=== PATIENT | female | born 1995 | race Native Hawaiian/Other Pacific Islander ===

== ENCOUNTER 2017-07-09 20:18 | Emergency (ER) | payer BC, MEDICAID ==
[2017-07-09 20:19] VITALS: BMI 37.1
[2017-07-09 20:56] VITALS: BP 129/64; PULSE 66; RESP 16; TEMP 98.4; O2SAT 100
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
--- NOTE | 2017-07-09 22:11 | CT ---
EXAM: CT Maxillofacial Without Intravenous Contrast CLINICAL HISTORY: 22 years old, female; Pain; Jaw pain; Additional info: Injury, left-sided mandible pain TECHNIQUE: Axial computed tomography images of the face without intravenous contrast. All CT scans at this facility use one or more dose reduction techniques, viz.: automated exposure control; ma/kV adjustment per patient size (including targeted exams where dose is matched to indication; i.e. head); or iterative reconstruction technique. Coronal and sagittal reformatted images were created and reviewed. COMPARISON: No relevant prior studies available. FINDINGS: Bones/joints: No acute fracture. Soft tissues: Soft tissue swelling/stranding along right anterior mandible. Orbits: Unremarkable as visualized. Sinuses: Scattered mild mucosal thickening of LEFT ethmoid sinus. Mild mucosal thickening of LEFT maxillary sinus. Scattered minimal mucosal thickening of remaining sinuses. Small air-fluid level within LEFT maxillary sinus. Mastoid air cells: No mastoid effusion. IMPRESSION: 1. No fracture. 2. Sinus disease.
== END 2017-07-09 22:58 | disposition home or self-care (01) ==
LOC: H.ER 20:18
DX: S09.93XA Unspecified injury of face, initial encounter (principal); Y04.0XXA Assault by unarmed brawl or fight, initial encounter

== ENCOUNTER 2017-09-24 12:38 | Emergency (ER) | payer MEDICAID ==
[2017-09-24 12:38] VITALS: BMI 37.1
[2017-09-24] MEDS ORDERED: Sodium Chloride 0.9% 1,000 ML IV STA (13:23)
--- NOTE | 2017-09-24 13:34 | ED PDOC ---
HPI: Abdomen Time Seen by Provider: 09/24/17 12:49 Chief Complaint (Nursing): Abdominal Pain Chief Complaint (Provider): Abdominal Pain History Per: Patient History/Exam Limitations: no limitations Onset/Duration Of Symptoms: Days (x 1), Intermittent Episodes Location Of Pain/Discomfort: Epigastric, Periumbilical Associated Symptoms: Vomiting, Diarrhea. denies: Fever Additional Complaint(s): 22 years old female presents to the ED with complaints of intermittent episodes of periumbilical epigastric pain associated with non-bloody/bilious vomiting and watery, non-bloody diarrhea onset yesterday evening. Patient reports experiencing multiple episodes of vomiting since yesterday until this morning. She denies any fever, recent travel, taking antibiotics or sick contact. Past Medical History Reviewed: Historical Data, Nursing Documentation, Vital Signs Vital Signs: Last Vital Signs Temp 98.0 F 09/24/17 12:41 Pulse 72 09/24/17 14:35 Resp 18 09/24/17 14:35 BP 120/76 09/24/17 14:35 Pulse Ox 98 09/24/17 14:35 - Medical History PMH: Migraine - Surgical History Surgical History: No Surg Hx - Family History Family History: States: Unknown Family Hx - Social History Current smoker - smoking cessation education provided: No Alcohol: None Drugs: Denies - Home Medications Home Medications: Ambulatory Orders Medication Instructions Recorded Multivit/Folic Acid/I 1 tab PO DAILY 04/22/16 [] Ibuprofen [Motrin Tab] 600 mg PO Q6 PRN #40 tab 04/24/16 Ibuprofen [Motrin Tab] 1 tab PO Q6 PRN #20 tab 07/09/17 Ondansetron ODT [Zofran ODT] 4 mg PO Q8 PRN #12 odt 09/24/17 - Allergies Allergies/Adverse Reactions: Allergies Allergy/AdvReac Type Severity Reaction Status Date / Time No Known Allergies Allergy Verified 07/09/17 20:52 Review of Systems ROS Statement: Except As Marked, All Systems Reviewed And Found Negative Constitutional: Negative for: Fever Gastrointestinal: Positive for: Vomiting (non bloody, non bilious), Abdominal Pain (preiumbilical epigastric), Diarrhea (watery, non bloody) Physical Exam - Reviewed Nursing Documentation Reviewed: Yes Vital Signs Reviewed: Yes - Physical Exam Appears: Positive for: Non-toxic, No Acute Distress Head Exam: Positive for: ATRAUMATIC, NORMOCEPHALIC Skin: Positive for: Normal Color, Warm, Dry Eye Exam: Positive for: Normal appearance, EOMI, PERRL ENT: Positive for: Normal ENT Inspection Neck: Positive for: Normal, Supple Cardiovascular/Chest: Positive for: Regular Rate, Rhythm. Negative for: Murmur Respiratory: Positive for: Normal Breath Sounds. Negative for: Respiratory Distress Gastrointestinal/Abdominal: Positive for: Soft, Tenderness (epigastric). Negative for: Distended Back: Positive for: Normal Inspection Extremity: Positive for: Normal ROM. Negative for: Tenderness, Swelling Neurologic/Psych: Positive for: Alert, Oriented - Laboratory Results Result Diagrams: 09/24/17 13:49 09/24/17 13:49 - ECG O2 Sat by Pulse Oximetry: 99 (RA) Pulse Ox Interpretation: Normal - Progress Re-evaluation Time: 16:02 Condition: Re-examined, Improved Medical Decision Making Medical Decision Making: Time: 1322 Initial Impression: Abdominal pain with vomiting and diarrhea. Differential includes but not limited to acute gastroenteritis, pancreatitis and viral vs bacterial diarrhea. Initial Plan: --CMP --Lipase --Urine --Urine Dipstick --CBC --Bentyl 10 mg PO --NaCl 1,000 ml IV --Toradol 15 mg IVP --Pepcid 20 mg IVP --Zofran 4 mg IVP Scribe Attestation: Documented by Geno Chacon, acting as a scribe for Buffy Casillas MD. Provider Scribe Attestation: All medical record entries made by the Scribe were at my direction and personally dictated by me. I have reviewed the chart and agree that the record accurately reflects my personal performance of the history, physical exam, medical decision making, and the department course for this patient. I have also personally directed, reviewed, and agree with the discharge instructions and disposition. Disposition - Clinical Impression Clinical Impression: Vomiting and diarrhea - Patient ED Disposition Is Patient to be Admitted: No Doctor Will See Patient In The: Office Counseled Patient/Family Regarding: Studies Performed, Diagnosis, Need For Followup - Disposition Referrals: [facility] [Outside] Disposition: Routine/Home Disposition Time: 16:03 Condition: IMPROVED Additional Instructions: Drink plenty of fluids at home. Follow up with your PCP in 2-3 days. Return for worsening. Prescriptions: Ondansetron ODT [Zofran ODT] 4 mg PO Q8 PRN #12 odt PRN Reason: Nausea/Vomiting Instructions: Viral Gastroenteritis, Adult (DC)
[2017-09-24 13:54] LABS: BASO % 0.2 % (0.0-2.0); EOS % 0.2 % (0.0-4.0); HEMOGLOBIN 13.3 g/dL (12.0-16.0); LYMPH # 0.5 K/uL (1.0-4.3); LYMPH % 6.6 % (20.0-40.0); MEAN CELL VOLUME 83.8 fl (81.0-99.0); MEAN CORPUSCULAR HEMOGLOBIN 28.4 pg (27.0-31.0); MEAN CORPUSCULAR HGB CONC 33.9 g/dL (33.0-37.0); MEAN PLATELET VOLUME 8.8 fl (7.2-11.7); MONO # 0.4 K/uL (0.0-0.8); MONO % 4.7 % (0.0-10.0); NEUT # 6.8 K/uL (1.8-7.0); NEUT % 88.3 % (50.0-75.0); NRBC % 0.1 % (0.0-0.0); PLATELET COUNT 247 K/uL (130-400); RBC 4.68 Mil/uL (3.80-5.20); RED CELL DISTRIBUTION WIDTH 14.6 % (11.5-14.5); WHITE BLOOD COUNT 7.7 K/uL (4.8-10.8)
[2017-09-24 14:21] LABS: ALB/GLOB RATIO 1.1 (1.0-2.1); ALBUMIN 4.5 g/dL (3.5-5.0); ALT/SGPT 28 U/L (9-52); AST/SGOT 22 U/L (14-36); BLOOD UREA NITROGEN 16 mg/dl (7-17); CALCIUM 9.1 mg/dL (8.4-10.2); GFR AFRICAN-AMERICAN > 60; GFR NON-AFRICAN AMERICAN > 60; LIPASE 16 U/L (23-300)
[2017-09-24 14:43] LABS: LYMPHOCYTE 11 % (20-50); MONOCYTE 5 % (0-10); NEUTROPHIL 82 % (42-75); REACTIVE LYMPHOCYTES 2 % (0-0); TOTAL CELLS COUNTED 100
[2017-09-24 14:44] LABS: PLATELET ESTIMATE NORMAL (NORMAL)
[2017-09-24] MEDS ORDERED: Potassium Chloride 20 mEq ER Tab PO ONE ×2 (16:03→16:12)
[2017-09-24 16:19] VITALS: BP 118/76; PULSE 70; RESP 19; TEMP 97; O2SAT 98
== END 2017-09-24 16:19 | disposition home or self-care (01) ==
LOC: H.ER 12:38
DX: R11.10 Vomiting, unspecified (principal); R19.7 Diarrhea, unspecified
CPT/HCPCS: 80053; 81025; 83690; 85025; 96374; 96375; 99284; J1885; J2405; J7040